=== PATIENT | female | born 1980 | race Caucasian/White ===

== ENCOUNTER 2019-02-11 08:39 | Emergency (ER) | payer BC ==
--- OUTSIDE RECORDS SUMMARY | 2019-02-11 08:41 | XMS REPORT ---
:1980 Author Organization eClinicalWorks Care Team Providers Name Role Phone Renee Pike Provider Role Unavailable Allergies, Adverse Reactions, Alerts Substance Reaction Event Type N.K.D.A. Info Not Available Non Drug Allergy Problems Problem Type Condition Code Onset Dates Condition Status Problem Allergic rhinitis, unspecified J30.9 Active Problem Depression F32.9 Active Assessment Encounter for general adult medical Z00.00 Active examination without abnormal findings Assessment Encounter for gynecological Z01.419 Active examination without abnormal finding Medications Medication Code Code Instructions Start End Status Dosage System Date Date Calcium + D3 [facility] 40952668714 600-200 MG-UNIT Active 1 tablet Orally Once a with a day meal Fluoxetine HCl [facility] 90681094492 20 MG Orally Active 1 capsule Once a day in the morning Results Name Result Date Reference Range Unit Abnormality Flag CBC (H/H, RBC, INDICES, WBC, PLT) ----MPV 10.6 [id number] 7.5-12.5 fL N ----HEMOGLOBIN 13.1 94401548 11.7-15.5 g/dL N ----HEMATOCRIT 39.4 97514177 35.0-45.0 % N ----MCV 93.1 88731274 80.0-100.0 fL N ----MCH 31.0 [id number] 27.0-33.0 pg N ----MCHC 33.2 81781990 32.0-36.0 g/dL N ----RDW 12.6 [id number] 11.0-15.0 % N ----PLATELET COUNT 333 02173887 140-400 Thousand/u N L ----WHITE BLOOD 5.4 92099811 3.8-10.8 Thousand/u N CELL COUNT L ----RED BLOOD CELL 4.23 [id number] 3.80-5.10 Million/uL N COUNT HPV, HYBRID CAPTURE II (HUMAN PAPILLOMAVIRUS) ----HPV DNA (HIGH TNP [id number] RISK) COMPREHENSIVE METABOLIC PANEL(CMP) ----ALBUMIN/GLOBULI 1.6 20854038 1.0-2.5 (calc) N N RATIO ----GLOBULIN 2.7 86312266 1.9-3.7 g/dL N (calc) ----ALKALINE 74 15396018 33-115 U/L N PHOSPHATASE ----BILIRUBIN, 1.0 93095363 0.2-1.2 mg/dL N TOTAL ----CHLORIDE 101 04205504 98-110 mmol/L N ----ALT 10 35902018 6-29 U/L N ----POTASSIUM 4.6 86690154 3.5-5.3 mmol/L N ----AST 13 11186476 10-30 U/L N ----SODIUM 139 42864636 135-146 mmol/L N ----BUN/CREATININE NOT APPLICABLE 99454630 6-22 (calc) RATIO ----eGFR 142 92702446 > OR=60 mL/min/1.7 [place] [address] ----CALCIUM 9.3 24795771 8.6-10.2 mg/dL N ----CARBON DIOXIDE 29 11290847 20-32 mmol/L N ----ALBUMIN 4.4 91313484 3.6-5.1 g/dL N ----PROTEIN, TOTAL 7.1 89828128 6.1-8.1 g/dL N ----GLUCOSE 91 99510400 65-99 mg/dL N ----UREA NITROGEN 23 46593071 7-25 mg/dL N (BUN) ----CREATININE 0.53 48438457 0.50-1.10 mg/dL N ----eGFR NON-AFR. 122 [id number] > OR=60 mL/min/1.7 [place] [address] SURESWAB(R) CHLAMYDIA/ N. GONORRHOEAE RNA, TMA ----NEISSERIA NOT DETECTED [id number] NOT DETECTED N GONORRHOEAE RNA, TMA, UROGENITAL ----CHLAMYDIA NOT DETECTED [id number] NOT DETECTED N TRACHOMATIS RNA, TMA, UROGENITAL THINPREP TIS PAP ----SOURCE: None given [id number] N ----PREV. BX: NONE GIVEN [id number] N ----PREV. PAP: NONE GIVEN [id number] N ----LMP: NONE GIVEN [id number] N ----CLINICAL None given [id number] N INFORMATION: LIPID PANEL ----TRIGLYCERIDES 75 90902818 <150 mg/dL N ----HDL CHOLESTEROL 52 49758771 >50 mg/dL N ----CHOL/HDLC RATIO 3.4 30270138 <5.0 (calc) N ----LDL-CHOLESTEROL 110 56348054 mg/dL H (calc) ----NON HDL 126 [id number] <130 mg/dL N CHOLESTEROL (calc) ----CHOLESTEROL, 178 30901575 <200 mg/dL N TOTAL Summary Purpose eClinicalWorks Submission
--- OUTSIDE RECORDS SUMMARY | 2019-02-11 08:41 | XMS REPORT ---
:1980 Author Organization e[employer]Works Care Team Providers Name Role Phone Renee Pike Provider Role Unavailable Allergies No Known Allergies Problems Problem Type Condition Code Onset Dates Condition Status Problem Allergic rhinitis, unspecified J30.9 Active Problem Depression F32.9 Active Medications No Known Medications Results No Known Results Summary Purpose eClinicalWorks Submission
--- OUTSIDE RECORDS SUMMARY | 2019-02-11 08:41 | XMS REPORT ---
:1980 Author Organization eClinicalWorks Care Team Providers Name Role Phone Renee Pike Provider Role Unavailable Allergies, Adverse Reactions, Alerts Substance Reaction Event Type N.K.D.A. Info Not Available Non Drug Allergy Problems Problem Type Condition Code Onset Dates Condition Status Problem Allergic rhinitis, unspecified J30.9 Active Problem Depression F32.9 Active Assessment Depression F32.9 Active Assessment Allergic rhinitis, unspecified J30.9 Active Medications Medication Code Code Instructions Start End Status Dosage System Date Date Fluoxetine HCl [facility] 73569645311 20 MG Orally Active 1 capsule Once a day in the morning Calcium + D3 [facility] 18749849164 600-200 MG-UNIT Active 1 tablet Orally Once a with a day meal Results No Known Results Summary Purpose eClinicalWorks Submission
--- NOTE | 2019-02-11 09:17 | EDPHYS ---
Physician Documentation [facility] Name: Yamil Schneider Age: 38 yrs Sex: Female : 1980 Arrival Date: 02/11/2019 Time: 08:43 Bed 19 Private MD: Vicky Pike ED Physician Brent Parrish HPI: 02/11 09:10 This 38 yrs old Female presents to ER via Ambulatory with complaints of behzad Nausea, Diarrhea, Chills. 09:10 The patient presents to the emergency department with nausea, diarrhea, abdominal pain, behzad of the right upper quadrant, left upper quadrant, right lower quadrant and left lower quadrant. Onset: The symptoms/episode began/occurred 2 day(s) ago. Possible causes: unknown, travel. The symptoms are aggravated by food . Associated signs and symptoms: The patient has no apparent associated signs or symptoms. Severity of symptoms: At their worst the symptoms were mild in the emergency department the symptoms are unchanged. The patient has not experienced similar symptoms in the past. Historical: - Allergies: 08:45 No Known Allergies; sv - PMHx: 08:45 None; sv - PSHx: 08:45 Tubal ligation; sv - Immunization history:: Adult Immunizations up to date. - Social history:: Smoking status: Patient/guardian denies using tobacco. - Ebola Screening: : No symptoms or risks identified at this time. - Family history:: not pertinent. ROS: 09:10 Constitutional: Negative for fever, chills, and weight loss, Eyes: Negative for injury, behzad pain, redness, and discharge, ENT: Negative for injury, pain, and discharge, Neck: Negative for injury, pain, and swelling, Cardiovascular: Negative for chest pain, palpitations, and edema, Respiratory: Negative for shortness of breath, cough, wheezing, and pleuritic chest pain, Back: Negative for injury and pain, : Negative for injury, bleeding, discharge, and swelling, MS/Extremity: Negative for injury and deformity, Skin: Negative for injury, rash, and discoloration, Neuro: Negative for headache, weakness, numbness, tingling, and seizure, Psych: Negative for depression, anxiety, suicide ideation, homicidal ideation, and hallucinations, Allergy/Immunology: Negative for hives, rash, and allergies, Endocrine: Negative for neck swelling, polydipsia, polyuria, polyphagia, and marked weight changes, Hematologic/Lymphatic: Negative for swollen nodes, abnormal bleeding, and unusual bruising. 09:10 Abdomen/GI: Positive for abdominal pain, nausea, diarrhea, of the right upper quadrant, left upper quadrant, right lower quadrant and left lower quadrant. Exam: 09:10 Constitutional: This is a well developed, well nourished patient who is awake, alert, behzad and in no acute distress. Head/Face: Normocephalic, atraumatic. Eyes: Pupils equal round and reactive to light, extra-ocular motions intact. Lids and lashes normal. Conjunctiva and sclera are non-icteric and not injected. Cornea within normal limits. Periorbital areas with no swelling, redness, or edema. ENT: Nares patent. No nasal discharge, no septal abnormalities noted. Tympanic membranes are normal and external auditory canals are clear. Oropharynx with no redness, swelling, or masses, exudates, or evidence of obstruction, uvula midline. Mucous membranes moist. Neck: Trachea midline, no thyromegaly or masses palpated, and no cervical lymphadenopathy. Supple, full range of motion without nuchal rigidity, or vertebral point tenderness. No Meningismus. Chest/axilla: Normal chest wall appearance and motion. Nontender with no deformity. No lesions are appreciated. Cardiovascular: Regular rate and rhythm with a normal S1 and S2. No gallops, murmurs, or rubs. Normal PMI, no JVD. No pulse deficits. Respiratory: Lungs have equal breath sounds bilaterally, clear to auscultation and percussion. No rales, rhonchi or wheezes noted. No increased work of breathing, no retractions or nasal flaring. Back: No spinal tenderness. No costovertebral tenderness. Full range of motion. Skin: Warm, dry with normal turgor. Normal color with no rashes, no lesions, and no evidence of cellulitis. MS/ Extremity: Pulses equal, no cyanosis. Neurovascular intact. Full, normal range of motion. Neuro: Awake and alert, GCS 15, oriented to person, place, time, and situation. Cranial nerves II-XII grossly intact. Motor strength 5/5 in all extremities. Sensory grossly intact. Cerebellar exam normal. Normal gait. 09:10 Abdomen/GI: Inspection: abdomen appears normal, Bowel sounds: normal, Palpation: mild abdominal tenderness, in all quadrants, Liver: no appreciated palpable abnormalities, Hernia: not appreciated. Vital Signs: 08:45 BP 107 / 75; Pulse 81; Resp 18; Temp 98.2(O); Pulse Ox 100% ; Weight 65.77 kg; Height 5 sv ft. 1 in. (154.94 cm); Pain 2/10; 08:45 Body Mass Index 27.40 (65.77 kg, 154.94 cm) sv MDM: 08:54 Patient medically screened. [facility] 09:13 Data reviewed: vital signs, nurses notes, lab test result(s). [facility] 02/11 09:10 Order name: Occult Blood [facility] Administered Medications: 09:54 Drug: Zofran 4 mg Route: PO; [facility] 09:54 Follow up: Response: Medication administered at discharge. [facility] 09:54 Drug: Cipro 500 mg Route: PO; 7 09:54 Follow up: Response: Medication administered at discharge. jl7 Disposition: 02/11/19 09:16 Discharged to Home. Impression: Nausea, Abdominal tenderness, Diarrhea, unspecified. - Condition is Stable. - Discharge Instructions: Abdominal Pain, Adult, Food Choices to Help Relieve Diarrhea, Adult, Diarrhea, Adult, Nausea, Adult, Abdominal Pain, Adult, Cypn-oe-Acch, Diarrhea, Adult, Rwoj-se-Qxla. - Prescriptions for Zofran 4 mg Oral Tablet - take 1 tablet by ORAL route every 12 hours As needed; 14 tablet. Cipro 500 mg Oral Tablet - take 1 tablet by ORAL route every 12 hours for 5 days; 10 tablet. Bentyl 20 mg Oral Tablet - take 1 tablet by ORAL route every 6 hours As needed; 20 tablet. - Medication Reconciliation Form, Thank You Letter, Antibiotic Education, Prescription Opioid Use form. - Follow up: Vicky Pike; When: 2 - 3 days; Reason: Recheck today's complaints, Continuance of care, Re-evaluation by your physician. Follow up: Jake Mahoney MD; When: 2 - 3 days; Reason: Recheck today's complaints, Re-evaluation by your physician. - Problem is new. - Symptoms have improved. Signatures: Dispatcher [employer] Yissel Aburto RN RN sv Anderson, Corey, MD MD cha Leal, Jahala, RN RN jl7 Corrections: (The following items were deleted from the chart) :55 09:16 02/11/2019 09:16 Discharged to Home. Impression: Nausea; Abdominal tenderness; jl7 Diarrhea, unspecified. Condition is Stable. Forms are Medication Reconciliation Form, Thank You Letter, Antibiotic Education, Prescription Opioid Use. Follow up: Vicky Pike; When: 2 - 3 days; Reason: Recheck today's complaints, Continuance of care, Re-evaluation by your physician. Follow up: Jake Mahoney; When: 2 - 3 days; Reason: Recheck today's complaints, Re-evaluation by your physician. Problem is new. Symptoms have improved. behzad
--- NOTE | 2019-02-11 09:17 | ER ---
Nurse's Notes [facility] Name: Yamil Schneider Age: 38 yrs Sex: Female : 1980 Arrival Date: 02/11/2019 Time: 08:43 Bed 19 Private MD: Vicky Pike Diagnosis: Nausea;Abdominal tenderness;Diarrhea, unspecified Presentation: 02/11 08:44 Presenting complaint: Patient states: chills, nausea, diarrhea x 4 days, Recently came sv back to [facility]. Denies fever. Transition of care: patient was not received from another setting of care. Onset of symptoms was February 08, 2019. Care prior to arrival: None. 08:44 Method Of Arrival: Ambulatory sv 08:44 Acuity: RUBY 3 sv 09:40 Initial Sepsis Screen: Does the patient meet any 2 criteria? No. Patient's initial jl7 sepsis screen is negative. Does the patient have a suspected source of infection? No. Patient's initial sepsis screen is negative. 09:40 Risk Assessment: Do you want to hurt yourself or someone else? Patient reports no jl7 desire to harm self or others. Historical: - Allergies: 08:45 No Known Allergies; sv - PMHx: 08:45 None; sv - PSHx: 08:45 Tubal ligation; sv - Immunization history:: Adult Immunizations up to date. - Social history:: Smoking status: Patient/guardian denies using tobacco. - Ebola Screening: : No symptoms or risks identified at this time. - Family history:: not pertinent. Screenin:40 Abuse screen: Denies threats or abuse. Denies injuries from another. Nutritional jl7 screening: No deficits noted. Tuberculosis screening: No symptoms or risk factors identified. Fall Risk None identified. Assessment: 09:40 General: Appears in no apparent distress. uncomfortable, Behavior is calm, cooperative, jl7 appropriate for age. Pain: Complains of pain in abdomen. Neuro: Level of Consciousness is awake, alert, obeys commands. Respiratory: Airway is patent Respiratory effort is even, unlabored, Respiratory pattern is regular, symmetrical. GI: Abdomen is flat, non-distended, Reports diarrhea, nausea, vomiting. : No signs and/or symptoms were reported regarding the genitourinary system. Derm: Skin is pink, warm \T\ dry. Vital Signs: 08:45 BP 107 / 75; Pulse 81; Resp 18; Temp 98.2(O); Pulse Ox 100% ; Weight 65.77 kg; Height 5 sv ft. 1 in. (154.94 cm); Pain 2/10; 08:45 Body Mass Index 27.40 (65.77 kg, 154.94 cm) sv ED Course: 08:43 Patient arrived in ED. mr 08:44 Ernestine Pikea is Private Physician. mr 08:45 Triage completed. sv 08:45 Arm band placed on. sv 08:54 Brent Parrish MD is Attending Physician. behzad 09:15 Vicky Pike is Referral Physician. behzad 09:15 Jake Mahoney MD is Referral Physician. behzad 09:38 Christine Chery, CHARLES is Primary Nurse. ss 09:40 Patient has correct armband on for positive identification. Bed in low position. Call jl7 light in reach. Side rails up X 1. 09:49 Tyler Godinez RN is Primary Nurse. jl7 09:52 No provider procedures requiring assistance completed. Patient did not have IV access jl7 during this emergency room visit. Administered Medications: 09:54 Drug: Zofran 4 mg Route: PO; jl7 09:54 Follow up: Response: Medication administered at discharge. jl7 09:54 Drug: Cipro 500 mg Route: PO; jl7 09:54 Follow up: Response: Medication administered at discharge. jl7 Outcome: 09:16 Discharge ordered by . [facility] 09:52 Discharged to home ambulatory. jl7 09:52 Condition: stable 09:52 Discharge instructions given to patient, Instructed on discharge instructions, follow up and referral plans. medication usage, Demonstrated understanding of instructions, follow-up care, medications, Prescriptions given X 3. 09:55 Patient left the ED. jl7 Signatures: Yissel Burris RN RN Brent Parrish MD MD cha Rivera, Mary mr Christine Chery, CHARLES SOTO Tyler Godinez RN RN jl7
[2019-02-11] MEDS ORDERED: ONDANSETRON 4 MG (ODT) TAB ONE (09:52)
[2019-02-11] MEDS ORDERED: CIPROFLOXACIN HCL 500 MG TAB ONE (09:52)
== END 2019-02-11 09:55 | disposition home or self-care (01) ==
LOC: ER 08:39
DX: R10.819 Abdominal tenderness, unspecified site (principal); R11.0 Nausea; R19.7 Diarrhea, unspecified
CPT/HCPCS: 99283